=== PATIENT | female | born 1995 | race Caucasian/White ===

== ENCOUNTER 2016-07-20 22:30 | Emergency (ER) | payer MEDICAID, MEDICARE ==
[~2016-07-20] VITALS: Ht 162.6 cm; Wt 84.4 kg
[2016-07-20 23:07] VITALS: BP 135/72
--- NOTE | 2016-07-21 03:02 | NUR ---
Dr. Miller evaluating patient at bedside.
--- NOTE | 2016-07-21 03:02 | NUR ---
PT TAKEN TO OF
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
[2016-07-21] MEDS ORDERED: ACETAMINOPHEN EXTRA STRENGTH 500 MG TAB PO ONE (03:15)
--- NOTE | 2016-07-21 03:52 | NUR ---
ERMD AWARE PT IS .
[2016-07-21 04:25] VITALS: BP 115/73
--- NOTE | 2016-07-21 04:25 | NUR ---
Patient discharged with v/s stable. Written and verbal after care instructions given and explained. Patient verbalized understanding. Ambulatory with steady gait. All questions addressed prior to discharge. Advised to follow up with PMD. ID BAND REMOVED
== END 2016-07-21 04:25 | disposition home or self-care (01) ==
LOC: MED 22:30
DX: S13.9XXA Sprain of joints and ligaments of unspecified parts of neck, initial encounter (principal); S33.5XXA Sprain of ligaments of lumbar spine, initial encounter; V89.2XXA Person injured in unspecified motor-vehicle accident, traffic, initial encounter; Y93.89 Activity, other specified; Y92.89 Other specified places as the place of occurrence of the external cause; Y99.8 Other external cause status

== ENCOUNTER 2021-01-25 07:24 | Emergency (ER) | payer SELFPAY ==
[~2021-01-25] VITALS: Ht 162.6 cm; Wt 107.0 kg
[2021-01-25 07:27] VITALS: BP 147/80
--- NOTE | 2021-01-25 07:40 | NUR ---
pt ambulated to bed 12.
--- NOTE | 2021-01-25 07:40 | NUR ---
PT TAKEN TO BED 12.
[2021-01-25 08:02] LABS: APPEARANCE,URINE CLOUDY (CLEAR); BILIRUBIN,URINE NEGATIVE (NEGATIVE); BLOOD, URINE 3+ (NEGATIVE); COLOR,URINE RED (YELLOW); NITRITE, URINE POSITIVE (NEGATIVE); UGLUCOSE TRACE (NEGATIVE)
[2021-01-25 08:02] LABS: BASOPHILS # (AUTO) 0.1 K/uL (0.00-0.22); EOSINOPHILS % (AUTO) 0.1 % (0.0-4.0); HEMATOCRIT 41.2 % (36-48); HEMOGLOBIN 13.6 g/dL (12.0-16.0); LYMPHOCYTES # (AUTO) 2.7 K/uL (2.5-16.5); LYMPHOCYTES % (AUTO) 30.3 % (20.5-51.1); MEAN CORPUSCULAR HEMOGLOBIN 31 pg (27-31); MEAN CORPUSCULAR HGB CONC 33 g/dL (33-37); MEAN CORPUSCULAR VOLUME 92.8 fL (80-94); MONOCYTES # (AUTO) 0.6 K/uL (0.8-1.0); MONOCYTES % (AUTO) 6.5 % (1.7-9.3); NEUTROPHILS # (AUTO) 5.6 K/uL (1.8-7.7); NEUTROPHILS % (AUTO) 62.1 % (42.2-75.2); PLATELET COUNT (AUTO) 431 K/uL (140-450); RED BLOOD CELL COUNT(AUTO) 4.44 MIL/uL (4.20-5.40); RED CELL DISTRIBUTION WIDTH 13.8 % (11.6-13.7)
[2021-01-25 08:03] LABS: RBC,URINE TOO NUMEROUS TO COUN /HPF (0-5)
--- NOTE | 2021-01-25 08:06 | NUR ---
ultrasound at bedside.
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
[2021-01-25 08:20] LABS: LEUKOCYTE ESTERASE ,URINE 1+ (NEGATIVE); WBC,URINE 0-5 /HPF (0-5)
[2021-01-25] MEDS ORDERED: ACET-10509 PO (10:05)
[2021-01-25] MEDS ORDERED: NITR-141 PO (10:05)
[2021-01-25 10:27] VITALS: BP 113/73
--- NOTE | 2021-01-25 10:27 | NUR ---
Patient discharged with v/s stable. Written and verbal after care instructions given and explained. Patient alert, oriented and verbalized understanding of instructions. Ambulatory with steady gait. All questions addressed prior to discharge. ID band removed. Patient advised to follow up with PMD. Copies of results given to patient for follow up with OBGYN. Rx of Macrobid and Tylenol faxed to patient's preferred pharmacy. Patient educated on indication of medication including possible reaction and side effects. Opportunity to ask questions provided and answered.
== END 2021-01-25 10:27 | disposition home or self-care (01) ==
LOC: MED 07:24
DX: O03.9 Complete or unspecified spontaneous abortion without complication (principal); O23.41 Unspecified infection of urinary tract in pregnancy, first trimester; Z3A.10 10 weeks gestation of pregnancy
CPT/HCPCS: 36415; 76801; 76817; 81001; 81025; 84702; 85025; 86900; 86901; 87086; 99285

== ENCOUNTER 2021-01-28 11:31 | Emergency (ER) | payer BC ==
[~2021-01-28] VITALS: Ht 162.6 cm; Wt 108.0 kg
[~2021-01-28 11:31] MED LIST: ACET-10509 PO; NITR-141 PO
[2021-01-28 11:48] VITALS: BP 129/75
[2021-01-28] MEDS ORDERED: DOXY-487 PO (12:31)
[2021-01-28] MEDS ORDERED: [UNRECOGNIZED DRUG - CODE] TP (12:31)
--- NOTE | 2021-01-28 13:00 | NUR ---
No nursing interventions provided. No need for complete assessment.
[2021-01-28 13:13] VITALS: BP 129/75
--- NOTE | 2021-01-28 13:14 | NUR ---
Patient discharged with v/s stable. Written and verbal after care instructions given and explained. Patient alert, oriented and verbalized understanding of instructions. Ambulatory with steady gait. All questions addressed prior to discharge. ID band removed. Patient advised to follow up with PMD. Rx of Clindamycin and Doxycycline was given. Patient educated on indication of medication including possible reaction and side effects. Opportunity to ask questions provided and answered.
== END 2021-01-28 13:14 | disposition home or self-care (01) ==
LOC: MED 11:31
DX: L73.2 Hidradenitis suppurativa (principal); Z79.899 Other long term (current) drug therapy
CPT/HCPCS: 99283